=== PATIENT | female | born 1980 | race Caucasian/White ===

== ENCOUNTER 2020-02-03 11:06 | Outpatient (CLI) | payer OTHER, SELFPAY ==
--- NOTE | 2020-02-03 11:11 | MM_ITS ---
WS: [id number] SCREENING DIGITAL MAMMOGRAM WITH CAD HISTORY: SCREENING COMPARISON: None available. Bilateral CC and MLO views submitted. Computer aided detection analyzed. Breast composition: There are scattered areas of fibroglandular density. Well-circumscribed lobulated nodule measuring 13 x 8 mm, 2:00 middle depth LEFT breast. Additional nearly isodense nodule measuri ng 7 mm seen on the RIGHT MLO projection in the posterior superior breast adjacent to the pectoralis muscle. MM/[place] [id number] IMPRESSION: BI-RADS: 0-Incomplete: Need additional imaging evaluation FOLLOW UP: Need Additional Imaging RIGHT breast: Spot compression views (exaggerated lateral CC and MLO). True ML. Ultrasound to follow if abnormality persists. LEFT breast: Spot compression views (CC and MLO). True ML. Ultrasound to follow if abnormality persists.
== END 2020-02-03 11:07 | disposition home or self-care (01) ==
LOC: RADSHAW 11:10
PROVIDERS: Visit Provider Obstetrics & Gynecology
DX: Z12.31 Encounter for screening mammogram for malignant neoplasm of breast (principal); N63.21 Unspecified lump in the left breast, upper outer quadrant
CPT/HCPCS: 77067

== ENCOUNTER 2020-02-23 12:48 | Outpatient (CLI) | payer OTHER, SELFPAY ==
--- NOTE | 2020-02-23 13:30 | MM_ITS ---
WS: [id number] BILATERAL DIGITAL DIAGNOSTIC MAMMOGRAM MAMMOGRAPHY WITH CAD CLINICAL INFORMATION: N63.0 - Unspecified lump in unspecified breast HISTORY: COMPARISON: None. TECHNIQUE: Bilateral CC, MLO, and ML views. FINDINGS: Scattered fibroglandular densities bilaterally. Well-circumscribed lobulated nodule measuring 13 x 8 mm, 2:00 middle depth LEFT breast is unchanged. Additional small ovoid nodule measuring 7 mm seen on the RIGHT MLO projection in the posterior superi or breast is unchanged and may represent an incidental lymph node. Ultrasound is pending. ULTRASOUND BREAST BILATERAL TECHNIQUE: Ultrasound bilateral breast focused area of concern. CLINICAL INFORMATION: N63.0 - Unspecified lump in unspecified breast COMPARISON: None. FINDINGS: Ultrasound left breast at the 2:00 position. There is a 1.2 x 1.1 x 0.9 cm hypoechoic slightly lobula karen lesion. This is nonspecific but may represent a fibroadenoma. Recommend further evaluation with u ltrasound-guided biopsy. Right breast ultrasound performed at the 12:00 position. No abnormalities to correspond to the mammog raphic findings. No suspicious lesions in the right breast. MM/[place] [id number] IMPRESSION: BI-RADS: 4-Suspicious Finding-Biopsy Should Be Considered FOLLOW UP: US Guided Biopsy Recommended RECOMMEND ULTRASOUND-GUIDED BIOPSY OF LEFT BREAST LESION
--- NOTE | 2020-02-23 14:15 | US_ITS ---
WS: [id number] BILATERAL DIGITAL DIAGNOSTIC MAMMOGRAM MAMMOGRAPHY WITH CAD CLINICAL INFORMATION: N63.0 - Unspecified lump in unspecified breast HISTORY: COMPARISON: None. TECHNIQUE: Bilateral CC, MLO, and ML views. FINDINGS: Scattered fibroglandular densities bilaterally. Well-circumscribed lobulated nodule measuring 13 x 8 mm, 2:00 middle depth LEFT breast is unchanged. Additional small ovoid nodule measuring 7 mm seen on the RIGHT MLO projection in the posterior superi or breast is unchanged and may represent an incidental lymph node. Ultrasound is pending. ULTRASOUND BREAST BILATERAL TECHNIQUE: Ultrasound bilateral breast focused area of concern. CLINICAL INFORMATION: N63.0 - Unspecified lump in unspecified breast COMPARISON: None. FINDINGS: Ultrasound left breast at the 2:00 position. There is a 1.2 x 1.1 x 0.9 cm hypoechoic slightly lobula karen lesion. This is nonspecific but may represent a fibroadenoma. Recommend further evaluation with u ltrasound-guided biopsy. Right breast ultrasound performed at the 12:00 position. No abnormalities to correspond to the mammog raphic findings. No suspicious lesions in the right breast. US/US breast BI limited* [id number] IMPRESSION: BI-RADS: 4-Suspicious Finding-Biopsy Should Be Considered FOLLOW UP: US Guided Biopsy Recommended RECOMMEND ULTRASOUND-GUIDED BIOPSY OF LEFT BREAST LESION
== END 2020-02-23 12:49 | disposition home or self-care (01) ==
LOC: RADSHAW 12:49
PROVIDERS: Visit Provider Obstetrics & Gynecology
DX: N63.21 Unspecified lump in the left breast, upper outer quadrant (principal)
CPT/HCPCS: 76642; 77066

== ENCOUNTER 2020-03-02 11:44 | Outpatient (CLI) | payer OTHER, SELFPAY ==
--- NOTE | 2020-03-02 13:00 | US_ITS ---
WS: [id number] ULTRASOUND-GUIDED LEFT BREAST BIOPSY HISTORY: N63.20 - Unspecified lump in the left breast, unspecified quadrant COMPARISON: 02/23/2020 Procedure, risks and complications are explained to the patient. Medications are reviewed. Consent is obtained. The mass in the LEFT (2:00, 3 cm from the nipple) breast is localized with ultrasound. Skin is cleans ed with ChloraPrep and anesthetized with 1% buffered lidocaine. Small dermatome is made. Under steril e conditions mass is biopsied with a 14-gauge Achieve needle. Multiple core biopsies are performed. M aterial placed in formalin and sent to pathology for review. No complications encountered. Breast tissue marker (Bard ultrasound enhanced ribbon): Single. Patient left the radiology suite with no complications. Patient is instructed to return to [facility] or [facility] with any concerns. US/[place] [id number] IMPRESSION: 1. Uncomplicated core needle biopsy LEFT breast biopsy, 2:00. PATHOLOGY: Fibroadenoma. No malignancy. RECOMMENDATION: Although this is a benign diagnosis the margins of this mass is slightly lobulated and the mass is taller than wide. Surgical excision of this mass is recommended to evaluate the entire mass. I did discuss this with Mrs. Floyd that I would recommend surgical removal even if there was a benign diagnos is. Recommend surgical evaluation as imaging findings and pathology is not comp letely concordant.
== END 2020-03-02 11:45 | disposition home or self-care (01) ==
PROVIDERS: PCP Student in an Organized Health Care Education/Training Program; Visit Provider Obstetrics & Gynecology
DX: N63.20 Unspecified lump in the left breast, unspecified quadrant (principal); D24.2 Benign neoplasm of left breast
CPT/HCPCS: 19083; 88305

== ENCOUNTER → 2020-03-16 11:28 | Outpatient (BNVA) | payer OTHER, SELFPAY | PROVIDERS: PCP Student in an Organized Health Care Education/Training Program; Visit Provider Surgery | DX: Z01.812 Encounter for preprocedural laboratory examination (principal) | CPT/HCPCS: 87635 ==

== ENCOUNTER 2020-03-20 10:28 | Day surgery (SDC) | payer OTHER, SELFPAY ==
[2020-03-17 15:02] VITALS: BMI 34.2
[2020-03-20] VITALS (8 sets, daily range): BP systolic 79–126; BP diastolic 40–76; PULSE 77–88; RESP 14–19; TEMP 36.2–36.9; O2SAT 93–99
[2020-03-20] MEDS: sodium chloride 0.9% 1,000 ML 30 ML IV (10:43)
[2020-03-20 11:06] LABS: OR HCG Qualitative Urine Negative (Negative)
--- NOTE | 2020-03-20 11:21 | W.PM.OPSUD ---
Surgery/Procedure H&P Update DATE OF PROCEDURE: March 20, 2020 DATE H&P PERFORMED: 03/16/20 H&P UPDATE INFORMATION: I have reviewed H&P completed within last 30 days, I have examined patient prior to procedure and No changes to prior documentation PREOP DIAGNOSIS: Left breast mass PRIMARY INDICATION FOR PROCEDURE: The same PLANNED PROCEDURE: Operation Date: 03/20/20 12:15 Proposed Procedures p Excision of Left Breast Mass 52902 R92.8(Left) - Francois Lopez MD
--- NOTE | 2020-03-20 11:24 | P.ANESASSM_ITS ---
Pre-Anesthetic Assessment Pre-Anesthetic Assessment: Height/Weight: Height 1.73 m Weight 102.058 kg Temp Pulse Resp BP Pulse Ox 97.7 F 88 18 108/74 96 03/20/20 11:10 03/20/20 11:10 03/20/20 11:10 03/20/20 11:10 03/20/20 11:10 Preop Diagnosis: Left breast mass Proposed Procedure: Operation Date: 03/20/20 12:15 Proposed Procedures p Excision of Left Breast Mass 35113 R92.8(Left) - Francois Lopez MD Was Beta Raina taken within 24 hours: N/A Last intake: Intake Last Liquid Date 03/19/20 Last Liquid Time 21:00 Last Solid Date 03/19/20 Last Solid Time 21:00 Social: Social History: No alcohol and No tobacco Exam: Pre-Anes Outpt Exam: alert, oriented x 3, clear to auscultation bilaterally and regular rate & rhythm Airway: Submandibular: WNL Cervical ROM: WNL MP: 2 Dentition: Full CV/HEM: CV/HEM: HTN Metabolic: Metabolic: Morbid obesity Anesthetic Plan: ASA status: 2 Anesthesia: General Risk of > 500 ml blood loss (7ml/kg in children): No Meds/Allergies Current Medications: Current Medications Generic Name Dose Route Start Last Admin Trade Name Freq PRN Reason Stop Dose Admin Sodium Chloride 1,000 mls @ 30 ml s/hr 03/20/20 10:45 03/20/20 10:43 Sodium Chloride 0.9% IV 03/21/20 10:44 30 mls/hr .Q24H OLIVER Administration PFSH Anesthesia PFSH: Medical History Hypertension PCOS (polycystic ovarian syndrome) (~2005) Diagnosed in 2005. Treated with Metformin in the past Surgical History History of hysteroscopy (11/21/15) Dx: DUB. Performed by Dr. Grigsby at [facility] [place] [place] in [place], [place]. Findings: 1-2? uterine prolapse under anesthesia. S/P laparoscopic appendectomy (~09/2017) Performed in [place], [place] S/P LASIK surgery of both eyes (~2004) Family History Grandfather Cancer Maternal - Lung cancer Diabetes Paternal Mother Hypertension Grandmother Hypertension Maternal Family/Other Cancer Maternal aunt - Breast cancer Social History Smoking and tobacco status: never smoked Alcohol intake: current Alcohol intake frequency: holidays/special occasions only Female Reproductive History: Date of last menstrual period: 02/28/20 Data Anesthesia Other Labs: Laboratory Results - last 48 hr 03/20/20 11:05 Urine HCG, Qual Negative Cardiac Studies: No Data to Display
[2020-03-20] MEDS: lidocaine 2% INJ 20 mL INJECTION (12:14)
--- NOTE | 2020-03-20 12:36 | PM.OP ---
Operative Report Date of procedure: March 20, 2020 Pre-op Diagnosis: Left breast mass Post-op diagnosis: same Post-op Findings: Lipomatous/fibroadenomatous left breast mass 3 x 3 cm Procedure Done: Excision of left breast mass/lumpectomy Specimens removed/disposition: Left breast mass oriented short sutures superior and long sutures lateral Surgeon: Francois Lopez Shipping Checker: Surgical Leni Pastrana Circulating nurses Nora, Yadira PALMER and Fide Anesthesia: General (LMA site identification specialist Dary) Estimated blood loss (mL): 15 Condition: stable Disposition: same day Brief History: This is a pleasant 39 years old female patient presented with incidental finding of left breast lump, after further history taking physical examination and reviewing the chart and images with my personal interpretation and discussing further the images with Dr. Acosta.I did rehabilitation services counselor the patient for left breast mass excision. Informed consent per chart Procedure: After identifying the patient holding area,the left breast was marked before the procedure by myself in the presence of female checker bakery products GEORGES Claire, patient was then taken to the operative suite, was placed in supine position, intubated by anesthesia, LMA, prophylactic IV antibiotics were given per protocol, both arms were kept out, prep and drape of the left pectoralis region was done under the usual sterile technique. Timeout was done verifying the patient's name/date of /planned procedure and destination after the procedure, all were in agreement. After palpation of the breast lump I did add transverse incision on top of the mass and coinciding with the previous biopsy site, I was able to dissect using the Bovie cautery at good margin of normal breast tissue surrounding the mass, the mass appears to be deeper than would be expected and felt to be more likely Fibro lipoma-like/ fibroadenomatous changes, measures about 3 x 3 cm, the mass was then excised and appropriate orientation was done for the breast mass in the form of, short superior sutures, long left lateral sutures, and the specimen was taken out and passed to the circulating nurse for permanent pathology Thorough irrigation of the cavity was done and hemostasis, followed by deep dermal closure by 2-0 Vicryl, followed by 3-0 Vicryl then 4-0 Monocryl for skin closure Lidocaine 2% was injected at the site of the incision, Mastisol and Steri-Strips were applied followed by dry dressing in the form of fluffs and sports bra. Patient tolerated the procedure well, count of instruments,needle and sponges were completed at the end of the procedure.And then patient was transferred to the recovery area in stable condition. I Was present for the whole entire procedure
--- NOTE | 2020-03-20 15:20 | ANE.PACU2 ---
Inpatient post-anesthesia follow up: Airway intact: Yes Vital signs: Temperature 97.3 F Pulse Rate 85 Respiratory Rate 18 Blood Pressure 126/76 Pulse Oximetry 97 Oxygen Delivery Me thod Room Air Oxygen Flow Rate 6 Fraction of Inspir ed Oxygen Hydration adequate: Yes Nausea and vomiting: No Pain level: 1 Mental status: Baseline
== END 2020-03-20 14:10 | disposition home or self-care (01) ==
PROVIDERS: Anesthesiology; PCP Student in an Organized Health Care Education/Training Program; Visit Provider Surgery
PROC: (CPT 19120; principal; 2020-03-20 12:05)
DX: D24.2 Benign neoplasm of left breast (principal); I10 Essential (primary) hypertension; E66.01 Morbid (severe) obesity due to excess calories; Z68.34 Body mass index [BMI] 34.0-34.9, adult; E28.2 Polycystic ovarian syndrome
CPT/HCPCS: 19120; 12345; 84703; 88305; J0690; J2250; J2405; J2704; J3010; J7030

== ENCOUNTER → 2020-10-06 15:17 | Outpatient (BNVA) | payer OTHER, SELFPAY | PROVIDERS: PCP Student in an Organized Health Care Education/Training Program; Visit Provider Obstetrics & Gynecology | DX: D25.9 Leiomyoma of uterus, unspecified (principal) | CPT/HCPCS: 76830 ==

== ENCOUNTER → 2021-01-08 08:44 | Outpatient (BNVA) | payer OTHER, SELFPAY | PROVIDERS: PCP Student in an Organized Health Care Education/Training Program; Visit Provider Obstetrics & Gynecology | DX: D25.9 Leiomyoma of uterus, unspecified (principal) | CPT/HCPCS: 87624 ==

== ENCOUNTER 2021-02-09 09:31 | Outpatient (CLI) | payer OTHER, SELFPAY ==
--- NOTE | 2021-02-09 09:35 | MM_ITS ---
WS: [id number] Bilateral screening digital mammogram, 02/09/2021 Clinical Data: SCREENING Comparison: 02/23/2020, 02/03/2020. Findings: The breast parenchymal pattern shows fat replacement. No spiculated masses or clustered calcification s are seen. There are no secondary signs of carcinoma. The nodule which was in the upper outer aspect of the left breast is no longer present. MM/[place] [id number] Impression: 1. Negative bilateral mammogram unchanged. 2. Recommend annual screening mammograms. BIRADS: 1-Negative FOLLOW UP: 1 Year Follow-up The CAD receiving dock checker was used.
== END 2021-02-09 09:32 | disposition home or self-care (01) ==
LOC: RADSHAW 09:33
PROVIDERS: PCP Student in an Organized Health Care Education/Training Program; Visit Provider Obstetrics & Gynecology
DX: Z12.31 Encounter for screening mammogram for malignant neoplasm of breast (principal)
CPT/HCPCS: 77067

== ENCOUNTER → 2021-03-16 00:01 | Outpatient (BNVA) | payer OTHER, SELFPAY | PROVIDERS: PCP Student in an Organized Health Care Education/Training Program; Visit Provider Obstetrics & Gynecology | DX: Z20.822 Contact with and (suspected) exposure to COVID-19 (principal) | CPT/HCPCS: 87635 ==

== ENCOUNTER 2021-03-20 06:49 | Day surgery (SDC) | payer OTHER, SELFPAY ==
[2021-03-19 13:23] VITALS: BMI 33.2
[2021-03-20] VITALS (7 sets, daily range): BP systolic 110–134; BP diastolic 57–75; PULSE 70–78; RESP 14–22; TEMP 36.1–36.3; O2SAT 100
[2021-03-20 07:14] LABS: OR HCG Qualitative Urine Negative (Negative)
[2021-03-20] MEDS: sodium chloride 0.9% 1,000 ML 30 ML IV (07:49)
--- NOTE | 2021-03-20 07:58 | ANES.PREANE2 ---
Pre-Anesthetic Assessment Height/Weight: Height 1.75 m Weight 102.058 kg Preop Diagnosis: Left breast mass Operation Date: 02/20/21 10:30 Proposed Procedures p Hysteroscopy w/ Myosure 49998 [id number] 05077 D25.9 N92.0(Not Applicable) - Courtney Lemus MD s Dilation And Curettage (D&C)(Not Applicable) - Courtney Lemus MD Operation Date: 03/20/21 08:15 Proposed Procedures p Hysteroscopy w/ [id number]/86426/n92.0/d25.9(Not Applicable) - Courtney Lemus MD s Hysteroscopy w/ Ablation w/ Novasure/42592/d25.9/n92.0(Not Applicable) - Courtney Lemus MD Was Beta Raina taken within 24 hours: N/A Was Clonidine taken within 24 hours: N/A Last intake: Intake Last Liquid Date 03/19/21 Last Liquid Time 20:00 Last Solid Date 03/19/21 Last Solid Time 20:00 Social No alcohol and No tobacco Exam alert, oriented x 3, clear to auscultation bilaterally and regular rate & rhythm Airway Submandibular: within normal limits Cervical ROM: within normal limits Mallampati: Class II Dentition: full History/ROS No significant history except as noted Pulmonary None reported CV/HEM Hypertension PCOS Menorrhagia Uterine leiomyoma Hepatic None reported GI None reported Metabolic None reported Musc/skel None reported Neuropsych None reported Anesthetic Plan ASA status: 2 Anesthesia: Anesthesia Evaluation and General Other: We discussed both MAC and general anesthesia and their risk and benefits. We discussed spectrum of MAC anesthesia including possible recall of intraoperative stimuli including pain/discomfort and possible conversion to general. Patient understands goals of MAC and consents to both general and MAC pending further discussion with surgeon. Risk of > 500 ml blood loss (7ml/kg in children): No Medications/Allergies Home Medications Medication Instructions Recorded Confirmed Last Taken Type hydrochlorothiazide 12.5 mg tablet 12.5 mg PO DAILY 12/03/19 03/20/21 03/19/21 History lisinopril 5 mg tablet 5 mg PO DAILY 12/03/19 03/20/21 03/19/21 History ascorbate calcium (vitamin C) 500 500 mg PO DAILY 10/12/20 03/20/2103/19/22 History mg tablet cholecalciferol (vitamin D3) 10 10 mcg PO DAILY 10/12/20 03/20/21 03/19/21 History mcg (400 unit) capsule zinc 50 mg tablet 50 mg PO DAILY 10/12/20 03/20/21 03/18/21 History norethindrone 1 mg-ethinyl 1 tab PO DAILY #28 tab 01/09/21 03/20/21 03/19/21 Rx estradiol 35 mcg tablet (Nortrel) Allergies Allergy/AdvReac Type Severity Reaction Status Date / Time dextromethorphan Allergy Rash Verified 03/16/21 08:07 [From NyQuil] doxylamine [From NyQuil] Allergy Rash Verified 03/16/21 08:07 pseudoephedrine [From NyQuil] Allergy Rash Verified 03/16/21 08:07 Current Medications Generic Name Dose Route Start Last Admin Trade Name Freq PRN Reason Stop Dose Admin Sodium Chloride 1,000 mls @ 30 mls/hr 03/20/21 07:00 03/20/21 07:49 Sodium Chloride 0.9% IV 03/21/21 06:59 30 mls/hr .Q24H OLIVER Administration PFSH Anesthesia Medical History Hypertension PCOS (polycystic ovarian syndrome) (~2005) Diagnosed in 2005. Treated with Metformin in the past Postop check Surgical History History of breast lump removal 02/2020--left breast--benign History of hysteroscopy (11/21/15) Dx: DUB. Performed by Dr. Grigsby at [facility] [place] in [place], [place]. Findings: 1-2? uterine prolapse under anesthesia. S/P laparoscopic appendectomy (~09/2017) Performed in [place], [place] S/P LASIK surgery of both eyes (~2004) Family History Grandfather Cancer Maternal - Lung cancer Diabetes Paternal Mother Hypertension Grandmother Hypertension Maternal Family/Other Cancer Maternal aunt - Breast cancer Father Diabetes Hypertension Denies family history of CAD (coronary artery disease) Clotting disorder Hyperlipidemia Chronic kidney disease (CKD) Bleeding disorder Thyroid disease Stroke Social History Smoking and tobacco status: never smoked Alcohol intake: current Alcohol intake frequency: holidays/special occasions only Female Reproductive History Date of last menstrual period: 02/28/20 Data Anesthesia Cardiac Studies: No Data to Display
--- NOTE | 2021-03-20 08:37 | W.PM.OPSUD ---
Surgery/Procedure H&P Update DATE OF PROCEDURE: March 20, 2021 DATE H&P PERFORMED: 03/16/21 H&P UPDATE INFORMATION: I have reviewed H&P completed within last 30 days, I have examined patient prior to procedure and No changes to prior documentation PREOP DIAGNOSIS: menorrhagia, uterine leiomyoma PRIMARY INDICATION FOR PROCEDURE: abnormal uterine bleeding PLANNED PROCEDURE: Operation Date: 02/20/21 10:30 Proposed Procedures p Hysteroscopy w/ Myosure 60181 [id number] 89638 D25.9 N92.0(Not Applicable) - Courtney Lemus MD s Dilation And Curettage (D&C)(Not Applicable) - Courtney Lemus MD Operation Date: 03/20/21 08:15 Proposed Procedures p Hysteroscopy w/ [id number]/31838/n92.0/d25.9(Not Applicable) - Courtney Lemus MD s Hysteroscopy w/ Ablation w/ Novasure/21898/d25.9/n92.0(Not Applicable) - Courtney Lemus MD
[2021-03-20] MEDS: miSOPROStol 200 mcg Tablet 600 MCG VAGINAL (09:14)
[2021-03-20 09:32] LABS: Basophils % 0.3 %; Eosinophils # 0.1 10^3/uL (0.0-0.8); Hematocrit 39.5 % (37.0-47.0); Hemoglobin 13.3 g/dL (11.5-15.3); Lymphocytes % 19.2 %; Mean Corpuscular HGB Conc 33.7 g/dL (30.0-36.0); Mean Corpuscular Volume 89.2 fl (81-99); Mean Platelet Volume 11.3 fL (7.4-10.4); Monocytes # 0.6 10^3/uL (0.2-0.9); Nucleated Red Blood Cells % 0 %; Platelet Count 353 10^3/cmm (130-400); Red Blood Count 4.43 10^6/uL (4.1-5.3); Red Cell Distribution Width 13.3 % (12.1-15.1); White Blood Count 10.1 10^3/uL (4.0-10.0)
--- NOTE | 2021-03-20 09:48 | P.OP_ITS ---
Operative Report Date of procedure: March 20, 2021 Pre-op diagnosis: Preop Diagnosis uterine leiomyoma, menorrhagia Post-op diagnosis: same Post-op findings: 10 week sized uterus with multiple fibroids Procedure done: hysteroscopy, dilation and curettage with myosure, endometrial ablation with novasure Specimens removed/disposition: endometrial curettings Pathology: endometrial curettings to pathology Surgeon: chapin Estimated blood loss: 5 ml IV fluids: 500 ml Complications: none Findings: 10 week sized uterus. multiple fibroids. 2000 ml hysteroscopy deficit Brief History: The patient presented for menorrhagia. She had been placed on OCP, which improved her bleeding and made it regular, however, it was still quite heavy. She had an ultrasound which showed uterine leiomyoma Procedure: The patient was taken to the operating room where monitored anesthesia was administered and to be adequate. She was prepped and draped in the normal sterile fashion in the dorsal lithotomy position in Ced stirps. A weighted speculum was placed into the vagina and the anterior lip of the cervix grasped with a single-tooth tenaculum. The uterus was sounded to 10 cm. The uterine length was 6 cm. The cervix was dilated to 16 Spanish. The hysteroscope was advanced into the endometrial cavity. There were several fibroids visualized. The MyoSure device was activated and the tissue was removed. Pictures were taken pre and post procedure. Attention was then turned to the NovaSure portion of the procedure. The NovaSure device was advanced into the endometrial cavity. The endometrial length was 6 cm and the endometrial width was 3.6 cm. The NovaSure device was activated and burn time was 37 seconds. All instruments were removed. The patient tolerated the procedure well. Sponge lap and needle counts were correct x3. She was taken to the recovery room in stable condition.
--- NOTE | 2021-03-20 09:56 | P.DS_ITS ---
Discharge Providers Date of Admission: 03/20/20 Date of Discharge: March 20, 2021 Attending Provider at Admission: chapin Attending Provider at Discharge: Courtney Lemus MD Primary Care Provider: Bill Meyer Diagnoses at Discharge Discharge Diagnosis (1) Menorrhagia: Status: Acute (2) Uterine leiomyoma: Status: Acute (3) Postoperative state: Status: Acute Reason for Visit Reason for Visit: uterine fibroids, menorrhagia Hospital Course Hospital Course The patient was admitted for surgery. she did well postoperatively and was ready for discharge post surgery. Discharge Data Studies Completed and Pending: Pending at discharge Category Date Time Status Pathology: Surgic al [PTH] Routine Pth 03/20/21 09:54 Ordered Laboratory Results WBC 10.1 10^3/uL (4.0 -10.0) H 03/20/21 07:40 RBC 4.43 10^6/uL (4.1 -5.3) 03/20/21 07:40 Hgb 13.3 g/dL (11.5-1 5.3) 03/20/21 07:40 Hct 39.5 % (37.0-47.0 ) 03/20/21 07:40 MCV 89.2 fl (81-99) 03/20/21 07:40 MCH 30.0 pg (28.0-34. 0) 03/20/21 07:40 MCHC 33.7 g/dL (30.0-3 6.0) 03/20/21 07:40 RDW 13.3 % (12.1-15.1 ) 03/20/21 07:40 Plt Count 353 10^3/cmm (130 -400) 03/20/21 07:40 MPV 11.3 fL (7.4-10.4 ) H 03/20/21 07:40 Neut % (Auto) 73.0 % 03/20/21 07:40 Lymph % (Auto) 19.2 % 03/20/21 07:40 [place] % (Auto) 6.0 % 03/20/21 07:40 Eos % (Auto) 1.0 % 03/20/21 07:40 Baso % (Auto) 0.3 % 03/20/21 07:40 Neut # (Auto) 7.40 10^3/uL (1.8 -7.7) 03/20/21 07:40 Lymph # (Auto) 2.0 10^3/uL (0.8- 4.8) 03/20/21 07:40 [place] # (Auto) 0.6 10^3/uL (0.2- 0.9) 03/20/21 07:40 Eos # (Auto) 0.1 10^3/uL (0.0- 0.8) 03/20/21 07:40 Baso # (Auto) 0.0 10^3/uL (0.0- 0.1) 03/20/21 07:40 Nucleated RBC % (a uto) 0 % 03/20/21 07:40 Nucleated RBCs # 0.0 /100WBC 03/20/21 07:40 Urine HCG, Qual Negative (Negati ve) 03/20/21 07:12 Vitals: Last Vital Signs Temp 97.0 F L 03/20/21 09:49 Pulse 78 03/20/21 09:55 Resp 15 03/20/21 09:55 BP 117/75 03/20/21 09:55 Pulse Ox 100 03/20/21 09:55 Discharge Plan Discharge Patient Disposition: Home Condition: Stable Prescriptions: Continued lisinopril 5 mg tablet 5 mg PO DAILY 0RF hydrochlorothiazide 12.5 mg tablet 12.5 mg PO DAILY 0RF ascorbate calcium (vitamin C) 500 mg tablet 500 mg PO DAILY 0RF cholecalciferol (vitamin D3) 10 mcg (400 unit) capsule 10 mcg PO DAILY 0RF zinc 50 mg tablet 50 mg PO DAILY 0RF Nortrel 1/35 (28) 1-35 mg-mcg tablet 1 tab PO DAILY Qty: 28 12RF Discharge Orders: Discharge Order (Routine); Ordered 03/20/21 Ordered By: Courtney Lemus Discharge Attestations Time Spent in Discharge Care*: less than 30 min Quality Metrics Clinical Quality Measures [ No reported AMI, CVA or VTE this stay] Coding Level of Care Code Acute Chg FW DC note Diagnoses Menorrhagia N92.0 Uterine leiomyoma D25.9 Postoperative state Z98.890
[2021-03-20] MEDS: HYDROmorphone 1 mg/mL INJ 1 mL 0.5 MG IVP (10:30)
--- NOTE | 2021-03-20 13:02 | ANE.PACU2 ---
Inpatient post-anesthesia follow up: Airway intact: Yes Vital signs: Temperature 97.1 F Pulse Rate 73 Respiratory Rate 15 Blood Pressure 113/57 Pulse Oximetry 100 Oxygen Delivery Me thod Room Air Oxygen Flow Rate Fraction of Inspir ed Oxygen Hydration adequate: Yes Nausea and vomiting: No Pain level: 4 Mental status: Baseline
== END 2021-03-20 11:00 | disposition home or self-care (01) ==
PROVIDERS: Anesthesiology; PCP Student in an Organized Health Care Education/Training Program; Visit Provider Obstetrics & Gynecology
PROC: 0UDB8ZZ Extraction of Endometrium, Via Natural or Artificial Opening Endoscopic (ICD-10-PCS; CPT 58558; principal; 2021-03-20 08:15)
PROC: 0U598ZZ Destruction of Uterus, Via Natural or Artificial Opening Endoscopic (ICD-10-PCS; CPT 58563; 2021-03-20 08:15)
DX: D25.9 Leiomyoma of uterus, unspecified (principal); N92.0 Excessive and frequent menstruation with regular cycle; I10 Essential (primary) hypertension; E28.2 Polycystic ovarian syndrome; Z82.49 Family history of ischemic heart disease and other diseases of the circulatory system; Z83.3 Family history of diabetes mellitus
CPT/HCPCS: 58558; 36415; 81025; 84703; 85025; 88305; 96365; J0690; J1100; J1170; J1200; J2405; J2704; J3010; J7030

== ENCOUNTER 2022-02-19 09:06 | Outpatient (CLI) | payer OTHER, SELFPAY ==
--- NOTE | 2022-02-19 09:42 | MM_ITS ---
WS: [id number] BILATERAL SCREENING DIGITAL TOMOSYNTHESIS MAMMOGRAM WITH CAD HISTORY: SCREENING COMPARISON: 02/09/2021 and 02/23/2020. Bilateral CC and MLO views with tomosynthesis and synthetic mammography submitted. Computer aided det ection analyzed. Breast composition: There are scattered areas of fibroglandular density. No suspicious masses, microc alcifications or architectural distortion. MM/[id number] IMPRESSION: BI-RADS: 1-Negative FOLLOW UP: 1 Year Follow-up
== END 2022-02-19 09:07 | disposition home or self-care (01) ==
LOC: RAD 09:07
PROVIDERS: PCP Registered Nurse; Visit Provider Obstetrics & Gynecology
DX: Z12.31 Encounter for screening mammogram for malignant neoplasm of breast (principal)
CPT/HCPCS: 77063; 77067

== ENCOUNTER 2022-07-09 10:08 | Observation (INO) | payer OTHER, SELFPAY ==
[2022-07-05 14:31] VITALS: BMI 32.9
[2022-07-05 14:55] LABS: Basophils % 0.2 %; Eosinophils # 0.1 10^3/uL (0.0-0.8); Eosinophils % 0.7 %; Hematocrit 41.8 % (37.0-47.0); Hemoglobin 13.7 g/dL (11.5-15.3); Lymphocytes # 2.3 10^3/uL (0.8-4.8); Lymphocytes % 18.4 %; Mean Corpuscular HGB Conc 32.8 g/dL (30.0-36.0); Mean Corpuscular Hemoglobin 29.7 pg (28.0-34.0); Mean Corpuscular Volume 90.5 fl (81-99); Mean Platelet Volume 11.1 fL (7.4-10.4); Monocytes # 0.7 10^3/uL (0.2-0.9); Monocytes % 5.7 %; Neutrophils # 9.21 10^3/uL (1.8-7.7); Neutrophils % 74.7 %; Nucleated Red Blood Cells % 0 %; Platelet Count 332 10^3/cmm (130-400); Red Blood Count 4.62 10^6/uL (4.1-5.3); White Blood Count 12.4 10^3/uL (4.0-10.0)
--- NOTE | 2022-07-05 14:58 | P.ANESASSM_ITS ---
Pre-Anesthetic Assessment Height/Weight: Height 1.75 m Weight 101.151 kg Preop Diagnosis: uterine fibroids, menorrhagia, adenomyosis Operation Date: 07/09/22 07:00 Proposed Procedures p Laparoscopic assisted vaginal hysterectomy, bilateral salpingectomy 73034 N9 3.9,N81.4(Not Applicable) - Courtney Lemus MD s Salpingectomy(Bilateral) - Courtney Lemus MD Familial anesthetic complications: none Was Beta Raina taken within 24 hours: N/A Was Clonidine taken within 24 hours: N/A Social No alcohol and No tobacco Exam alert, oriented x 3, clear to auscultation bilaterally and regular rate & rhythm Airway Submandibular: within normal limits Cervical ROM: within normal limits Mallampati: Class II Dentition: full CV/HEM Hypertension Metabolic Morbid Obesity Anesthetic Plan ASA status: 2 Anesthesia: General Medications/Allergies Home Medications Medication Instructions Recorded Confirmed Last Taken Type hydrochlorothiazide 12.5 mg tablet 12.5 mg PO DAILY 12/03/19 07/05/22 07/05/22 History lisinopril 5 mg tablet 5 mg PO DAILY 12/03/19 07/05/22 07/05/22 History norethindrone 1 mg-ethinyl 1 tab PO DAILY #28 tabs 01/21/22 07/05/22 07/05/22 Rx estradiol 35 mcg tablet (Nortrel) Allergies Allergy/AdvReac Type Severity Reaction Status Date / Time dextromethorphan Allergy Rash Verified 07/05/22 14:28 [From NyQuil] doxylamine [From NyQuil] Allergy Rash Verified 07/05/22 14:28 pseudoephedrine [From NyQuil] Allergy Rash Verified 07/05/22 14:28 [facility] Anesthesia Medical History Abnormal mammogram of left breast Contraception management Hypertension PCOS (polycystic ovarian syndrome) (~2005) Diagnosed in 2005. Treated with Metformin in the past Postop check Uterine leiomyoma Surgical History History of breast lump removal 02/2020--left breast--benign History of hysteroscopy (11/21/15) Dx: DUB. Performed by Dr. Grigsby at [facility] in [place], [place]. Findings: 1-2? uterine prolapse under anesthesia. S/P laparoscopic appendectomy (~09/2017) Performed in [place], [place] S/P LASIK surgery of both eyes (~2004) Family History Grandfather Diabetes Paternal Mother Hypertension Grandmother Hypertension Maternal Father Diabetes Hypertension Denies family history of Colon cancer Ovarian cancer Heart disease Hypercholesteremia Breast cancer Uterine cancer Thyroid disease Stroke Social History Substance/Drug Use: never Female Reproductive History Date of last menstrual period: 06/28/22 Data Anesthesia 07/05/22 14:40 07/05/22 14:40 Cardiac Studies: No Data to Display
[2022-07-05 15:12] LABS: Anion Gap 17.6 (5-19); Blood Urea Nitrogen 12 mg/dL (6-20); Calcium 8.7 mg/dL (8.5-10.5); Carbon Dioxide 21 mmol/L (22-29); Chloride 100 mmol/L (98-107); Creatinine Clr Calc Pharmacy 154.6071; Glomerular Filtration Rate 109.6 mL/min (90-130); Glucose 121 mg/dL (65-115); Osmolality Calculated 281 mOsm/kg (285-295); Potassium 3.6 mmol/L (3.5-5.1); Sodium 135 mmol/L (136-145)
[2022-07-09] VITALS (17 sets, daily range): BP systolic 98–136; BP diastolic 46–91; PULSE 62–92; RESP 14–18; TEMP 36.1–37; O2SAT 92–98
[2022-07-09] MEDS: phenazopyridine 100 mg Tablet 200 MG PO ×2 (06:32→15:30)
[2022-07-09] MEDS: acetaminophen 1,000 MG/100 ML PIGGYBACK 400 MG IV (06:33)
[2022-07-09] MEDS: gabapentin 300 mg Capsule PO (06:33)
[2022-07-09] MEDS: CELEcoxib 200 mg Capsule 400 MG PO (06:33)
[2022-07-09] MEDS: scopolamine 1.5 Patch 1 PATCH TRANSDERMA (06:33)
[2022-07-09] MEDS: sodium chloride 0.9% 1,000 ML 30 ML IV (06:38)
--- NOTE | 2022-07-09 06:49 | P.ANESUD_ITS ---
Pre-Anesthetic Update Pre-Anesthetic Assessment: Date of Surgery/Procedure: 07/09/22 Preop Jacquelyn gnosis: uterine fibroids, menorrhagia, adenomyosis Proposed Procedure: Operation Date: 07/09/22 07:00 Proposed Procedures p Laparoscopic assisted vaginal hysterectomy, bilateral salpingectomy 96823 N93.9,N81.4(Not Applicable) - Courtney Lemus MD s Salpingectomy(Bilateral) - Courtney Lemus MD Any changes to Pre-Anesthetic Assessment?: No Last Intake: Intake Last Liquid Date 07/08/22 Last Liquid Time 19:30 Last Solid Date 07/08/22 Last Solid Time 19:30 Vitals: Temperature 97.5 F L 07/09/22 06:00 Temperature Source Temporal Artery S can 07/09/22 06:00 Pulse Rate 88 07/09/22 06:00 Respiratory Rate 16 07/09/22 06:00 Blood Pressure 136/91 07/09/22 06:00 Blood Pressure Eryn n 106 07/09/22 06:00 Pulse Oximetry 98 07/09/22 06:00 Oxygen Delivery Me thod Room Air 07/09/22 06:20 Exam: Pre-Anes Outpt Exam: alert, oriented x 3, clear to auscultation bilaterally and regular rate & rhythm Cardiac Studies: No Data to Display
--- NOTE | 2022-07-09 07:07 | W.PM.OPSUD ---
Surgery/Procedure H&P Update DATE OF PROCEDURE: July 09, 2022 DATE H&P PERFORMED: 07/05/22 H&P UPDATE INFORMATION: I have reviewed H&P completed within last 30 days, I have examined patient prior to procedure and No changes to prior documentation PREOP DIAGNOSIS: uterine fibroids, menorrhagia, adenomyosis PLANNED PROCEDURE: Operation Date: 07/09/22 07:00 Proposed Procedures p Laparoscopic assisted vaginal hysterectomy, bilateral salpingectomy 56490 N93.9,N81.4(Not Applicable) - Courtney Lemus MD s Salpingectomy(Bilateral) - Courtney Lemus MD Related Problem List Diagnoses (1) Adenomyosis: (2) Menorrhagia: (3) Uterine leiomyoma:
[2022-07-09 07:09] LABS: OR HCG Qualitative Urine Negative (Negative)
[2022-07-09] MEDS: ceFAZolin 2,000 MG in sodium chloride 0.9% (plus) 50 ML 100 MG IV ×2 (07:10→15:29)
[2022-07-09] MEDS: vasopressin 20 unit/mL INJ INJECTION (07:53)
--- NOTE | 2022-07-09 09:28 | P.OP_ITS ---
Operative Report Date of procedure: July 09, 2022 Pre-op diagnosis: Preop Diagnosis uterine fibroids, menorrhagia, adenomyosis Post-op diagnosis: same Post-op findings: 10 week sized uterus with fibroids. Normal appearing tubes and ovaries Procedure done: LAVH, bilateral salpingectomy Specimens removed/disposition: uterus and fallopian tubes to pathology Surgeon: Courtney Lemus Anesthesia: General Estimated blood loss (mL): 200 IV fluids (mL): 1,000 Urine output (mL): 300 Complications: none Condition: stable Disposition: PACU Procedure: The patient was taken to the operating room where general anesthesia was administered and found to be adequate. She was prepped and draped in the normal sterile fashion in the dorsal lithotomy position in [facility]. A Stack catheter was placed. A urine culture was obtained. A weighted speculum was placed into the vagina and the cervix was grasped with a single tooth tenaculum. The Patient has had a previous endometrial ablation. A uterine manipulator was unable to be placed. The weighted speculum was removed. The gloves were changed and attention was turned to the abdomen. A 5 mm supraumbilical incision was made. Using a 5 mm port with the camera, the port was placed into the abdomen. The abdomen was insufflated. Two low, lateral 5 mm ports were placed on the left and right under direct visualization from the camera. The right tube was grasped and elevated. Using the laparoscopic cautery, the mesosalpinx was divided between the ovary and tube. The tube was removed. This was performed the same way on the left. The uteroovarian ligaments as well as the round ligaments were ligated. Attention was then turned to the vaginal portion of the procedure. The weighted speculum was placed into the vagina. The single tooth tenaculum was removed and replaced with the zain's tenaculum. 10 mL of dilute Pitressin was injected at the vesicovaginal junction. A circumferential incision was made at the vesicovaginal junction and the vaginal mucosa reflected cephalad. The posterior peritoneum was entered sharply with the Metzenbaum scissors and the long weighted speculum replaced. Using the [place] clamps the uterosacral ligaments were clamped cut and suture-ligated. The anterior peritoneum was entered sharply with the metzenbaum scissors. Then sequentially the uterine arteries and cardinal ligaments were clamped cut and suture-ligated. A single- tooth tenaculum was used to deliver the uterus. The remaining segement of the utero-ovarian ligaments were clamped cut and suture-ligated bilaterally and the specimen was removed. There was good hemostasis with only mild bleeding from the cuff. The peritoneum was closed with a pursestring using 2-0 Vicryl. The vaginal cuff was closed with 0 Vicryl in a running locked pattern incorporating the uterosacral ligaments into the lateral aspects of the vaginal cuff. The Stack catheter was removed and the cystoscope advanced into the bladder. The patient was given pyridium and bilateral spill was noted. There were no injuries or deficits noted in the bladder. The cystoscope was removed and the Stack was replaced. Vaginal packing was placed for good hemostasis. The gloves and gowns were changed and attention was turned to the abdomen. The ports were closed with 2-0 monocryl with skin glue. The patient tolerated the procedure well. Sponge lap and needle counts were correct x3. She was taken to the recovery room in stable condition.
--- NOTE | 2022-07-09 09:43 | PC.NURSE ---
Pt arrived to PACU, awake, denies any pain or nausea at this time. Dermabond to abdomen C/D/I, vag packing and peripad in place-no drainage noted. Stack catheter patent and draining. SCD's in place and running.
[2022-07-09] MEDS: fentaNYL 50 mcg/mL INJ 2mL IVP (09:55)
[2022-07-09] MEDS: ketorolac 30 mg/mL INJ IVP (10:02)
[2022-07-09] MEDS: ketorolac 30 mg/mL INJ (10:47)
[2022-07-09] MEDS: HYDROcodone-acetaminophen 5-325 mg Tablet PO ×2 (12:40→18:56)
[2022-07-09] MEDS: ondansetron 2 mg/ML SDV 2 mL 4 MG IVP (12:46)
--- NOTE | 2022-07-09 14:52 | ANE.PACU2 ---
Inpatient post-anesthesia follow up: Airway intact: Yes Vital signs: Temperature 98.1 F Pulse Rate 62 Respiratory Rate 16 Blood Pressure 102/51 Pulse Oximetry 92 Oxygen Delivery Me thod Room Air Oxygen Flow Rate Fraction of Inspir ed Oxygen Hydration adequate: Yes Nausea and vomiting: No Pain level: 1 Mental status: Baseline
[2022-07-09] MEDS: docusate sodium 100 mg Capsule PO (17:42)
[2022-07-09] MEDS: dextrose 5%-lactated ringers 1,000 ML 125 ML IV (17:42)
[2022-07-10] MEDS: ketorolac 30 mg/mL INJ IVP (00:22)
[2022-07-10] MEDS: ceFAZolin 2,000 MG in sodium chloride 0.9% (plus) 50 ML 100 MG IV (00:22)
[2022-07-10] MEDS: dextrose 5%-lactated ringers 1,000 ML 125 ML IV (00:22)
[2022-07-10] MEDS: phenazopyridine 100 mg Tablet 200 MG PO ×2 (00:23→08:15)
[2022-07-10] MEDS: HYDROcodone-acetaminophen 5-325 mg Tablet PO (03:52)
[2022-07-10 04:06] VITALS: BP 117/78; PULSE 82; RESP 16; TEMP 36.9; O2SAT 96
--- NOTE | 2022-07-10 05:33 | PC.NURSE ---
Vaginal packing removed at this time.
[2022-07-10 05:35] LABS: Hemoglobin 10.8 g/dL (11.5-15.3); Mean Corpuscular Hemoglobin 29.7 pg (28.0-34.0); Mean Corpuscular Volume 98.9 fl (81-99); Platelet Count 271 10^3/cmm (130-400); Red Blood Count 3.64 10^6/uL (4.1-5.3); White Blood Count 14.6 10^3/uL (4.0-10.0)
[2022-07-10] MEDS: lisinopril 5 mg Tablet PO (08:08)
[2022-07-10] MEDS: ibuprofen 800 mg tablet PO (08:08)
[2022-07-10] MEDS: docusate sodium 100 mg Capsule PO (08:08)
[2022-07-10] MEDS: hydroCHLOROthiazide 25 mg Tablet 12.5 MG PO (08:08)
[2022-07-10 09:01] VITALS: BP 129/76; PULSE 72; RESP 16; O2SAT 98
--- NOTE | 2022-07-10 10:51 | PM.DCS ---
Discharge Providers Date of Admission: 07/09/22 10:08 Date of Discharge: July 10, 2022 Attending Provider at Admission: Courtney Lemus MD Attending Provider at Discharge: Courtney Lemus MD Primary Care Provider: ROBERT Ortiz Diagnoses at Discharge Discharge Diagnosis (1) Adenomyosis: Status: Acute (2) Menorrhagia: Status: Acute (3) Uterine leiomyoma: Status: Inactive Reason for Visit Reason for Visit: 04584 N93.3 Hospital Course Hospital Course The patient was admitted for surgery. She did well postoperatively and was ready for discharge on day #1 Physical Exam Narrative: The patient did well overnight. Pain is well controlled. She is tolerating a regular diet and ambulating without difficulty. Her packing and catheter have been removed. Const: COMMON NORMALS: no acute distress, patient oriented x3, no limitations, healthy appearing, alert and well nourished GENERAL APPEARANCE: cooperative, comfortable, well kempt and well developed ORIENTATION/CONSCIOUSNESS: Yes awake, Yes oriented to person, Yes oriented to place and Yes oriented to time Resp: COMMON NORMALS: normal respiratory effort and clear to auscultation bilaterally AUSCULTATION: clear to auscultation bilaterally GI: COMMON NORMALS: Soft to palpation and non-tender PALPATION: Yes Soft to palpation Extremity: COMMON NORMALS: no calf tenderness Neuro: COMMON NORMALS: patient oriented x3 SENSORIUM/ORIENTATION: Yes alert, Yes oriented to person, Yes oriented to place and Yes oriented to time Psych: COMMON NORMALS: mental status grossly normal, Normal thought process present, cooperative, normal affect and speech normal APPEARANCE: Yes well kempt SPEECH: Yes normal speech THOUGHT PROCESS: Normal thought process present Urinary Catheter Management: Stack: Cath Placed During This Visit: yes, but has since been removed by the nurse Reason for Continuing Indwelling Catheter: Decision to DC Catheter Urinary Catheter Date of Insertion: 07/09/22 Urinary Catheter Time of Insertion: 07:54 Date Urinary Catheter Removed: 07/10/22 Time Urinary Catheter Discontinued: 05:32 Discharge Data Studies Completed and Pending Pending at discharge Category Date Time Status Urine Culture Routine Lab 07/09/22 07:49 Results Pathology: Surgical [PTH] Routine Pth 07/09/22 09:07 Received Laboratory Results WBC 14.6 10^3/uL (4.0-10.0) H 07/10/22 05:30 RBC 3.64 10^6/uL (4.1-5.3) L 07/10/22 05:30 Hgb 10.8 g/dL (11.5-15.3) L 07/10/22 05:30 Hct 36.0 % (37.0-47.0) L 07/10/22 05:30 MCV 98.9 fl (81-99) 07/10/22 05:30 MCH 29.7 pg (28.0-34.0) 07/10/22 05:30 MCHC 30.0 g/dL (30.0-36.0) 07/10/22 05:30 RDW 13.0 % (12.1-15.1) 07/10/22 05:30 Plt Count 271 10^3/cmm (130-400) 07/10/22 05:30 MPV 11.0 fL (7.4-10.4) H 07/10/22 05:30 Neut % (Auto) 74.7 % 07/05/22 14:40 Lymph % (Auto) 18.4 % 07/05/22 14:40 [place] % (Auto) 5.7 % 07/05/22 14:40 Eos % (Auto) 0.7 % 07/05/22 14:40 Baso % (Auto) 0.2 % 07/05/22 14:40 Neut # (Auto) 9.21 10^3/uL (1.8-7.7) H 07/05/22 14:40 Lymph # (Auto) 2.3 10^3/uL (0.8-4.8) 07/05/22 14:40 [place] # (Auto) 0.7 10^3/uL (0.2-0.9) 07/05/22 14:40 Eos # (Auto) 0.1 10^3/uL (0.0-0.8) 07/05/22 14:40 Baso # (Auto) 0.0 10^3/uL (0.0-0.1) 07/05/22 14:40 Nucleated RBC % (auto) 0 % 07/05/22 14:40 Nucleated RBCs # 0.0 /100WBC 07/05/22 14:40 Sodium 135 mmol/L (136-145) L 07/05/22 14:40 Potassium 3.6 mmol/L (3.5-5.1) 07/05/22 14:40 Chloride 100 mmol/L (98-107) 07/05/22 14:40 Carbon Dioxide 21 mmol/L (22-29) L 07/05/22 14:40 Anion Gap 17.6 (5-19) 07/05/22 14:40 BUN 12 mg/dL (6-20) 07/05/22 14:40 Creatinine 0.6 mg/dL (0.5-0.9) 07/05/22 14:40 GFR Calculation 109.6 mL/min (90-130) 07/05/22 14:40 Glucose 121 mg/dL (65-115) H 07/05/22 14:40 Calculated Osmolality 281 mOsm/kg (285-295) L 07/05/22 14:40 Calcium 8.7 mg/dL (8.5-10.5) 07/05/22 14:40 Urine HCG, Qual Negative (Negative) 07/09/22 07:07 Blood Type O Positive 07/09/22 06:55 Rho(D) Type Positive 07/09/22 06:55 Antibody Screen Negative 07/09/22 06:55 Vitals Last Vital Signs Temp 98.5 F 07/10/22 04:06 Pulse 72 07/10/22 09:01 Resp 16 07/10/22 09:01 BP 129/76 07/10/22 09:01 Pulse Ox 98 07/10/22 09:01 O2 Del Method Room Air 07/10/22 09:01 Discharge Plan Discharge Patient Disposition: Home Condition: Stable Prescriptions: New docusate sodium 100 mg Capsule 100 mg PO BID Qty: 60 0RF ibuprofen 800 mg Tablet 800 mg PO Q8H 14 Days Qty: 42 0RF hydrocodone-acetaminophen 5-325 mg Tablet 1 tab PO Q4H PRN (Reason: Moderate To Severe Pain) Qty: 30 0RF Continued lisinopril 5 mg tablet 5 mg PO DAILY hydrochlorothiazide 12.5 mg tablet 12.5 mg PO DAILY Discontinued Nortrel 1 () 1-35 mg-mcg tablet 1 tab PO DAILY Qty: 28 12RF Discharge Orders: Discharge Order (Routine); Ordered 07/10/22 Ordered By: Courtney Lemus Referrals: Courtney Lemus MD [Physician] - 07/15/22 10:30 am (1 week post-op: 07/15/22 @10:30 6 week post-op: 08/19/22 @8:45) Patient Instructions: Salpingectomy (DC), Laparoscopic Hysterectomy (DC), Cystoscopy (DC), OB Discharge Report, OB Food/Drug Interaction Guide, Opioid Safety Discharge Attestations Time Spent in Discharge Care*: less than 30 min Quality Metrics Clinical Quality Measures [ No reported AMI, CVA or VTE this stay] Coding Level of Care Code Acute Code for Chg Fwd Diagnoses Adenomyosis N80.03 Menorrhagia N92.0 Uterine leiomyoma D25.9
[2022-07-10 11:18] VITALS: BP 114/60; PULSE 74; RESP 14; O2SAT 98
== END 2022-07-10 11:34 | disposition home or self-care (01) ==
LOC: OBGYN 10:10
PROVIDERS: Admitting Provider Obstetrics & Gynecology; PCP Registered Nurse; Visit Provider Obstetrics & Gynecology
PROC: 0UT9FZZ Resection of Uterus, Via Natural or Artificial Opening With Percutaneous Endoscopic Assistance (ICD-10-PCS; CPT 58552; principal; 2022-07-09 07:00)
PROC: (CPT 58700; 2022-07-09 07:00)
PROC: 0TJB8ZZ Inspection of Bladder, Via Natural or Artificial Opening Endoscopic (ICD-10-PCS; CPT 52000; 2022-07-09 07:00)
DX: N80.03 Adenomyosis of the uterus (principal); N92.0 Excessive and frequent menstruation with regular cycle; D25.9 Leiomyoma of uterus, unspecified; D28.2 Benign neoplasm of uterine tubes and ligaments; I10 Essential (primary) hypertension; E66.01 Morbid (severe) obesity due to excess calories; Z68.32 Body mass index [BMI] 32.0-32.9, adult
CPT/HCPCS: 58552; 36415; 80048; 81025; 84703; 85025; 85027; 86850; 86900; 87086; 88307; G0378; J0131; J0330; J0690; J1100; J1170; J1885; J2250; J2405; J2704; J2710; J3010; J3490; J7030; J7121

== ENCOUNTER 2023-02-28 09:07 | Outpatient (CLI) | payer OTHER, SELFPAY ==
--- NOTE | 2023-02-28 09:17 | MM_ITS ---
WS: [id number] BILATERAL 3D TOMOSYNTHESIS DIGITAL SCREENING MAMMOGRAPHY WITH CAD CLINICAL INFORMATION: SCREENING HISTORY: Screening mammogram. No current complaints. COMPARISON: 2021 TECHNIQUE: Bilateral CC and MLO views. FINDINGS: Scattered fibroglandular densities bilaterally. No suspicious focal mass, asymmetry, calcifications, or architectural distortion. No evidence of malignancy. IMPRESSION: MM/[place] [id number] BI-RADS: 1-Negative FOLLOW UP: 1 Year Follow-up Recommend return to annual screening mammography.
== END 2023-02-28 09:08 | disposition home or self-care (01) ==
LOC: RAD 09:08
PROVIDERS: PCP Registered Nurse; Visit Provider Nurse Practitioner Women's Health
DX: Z12.31 Encounter for screening mammogram for malignant neoplasm of breast (principal)
CPT/HCPCS: 77063; 77067

== ENCOUNTER 2024-03-12 12:42 | Outpatient (CLI) | payer OTHER, SELFPAY ==
--- NOTE | 2024-03-12 12:45 | MM_ITS ---
WS: [id number] BILATERAL 3D TOMOSYNTHESIS DIGITAL SCREENING MAMMOGRAPHY WITH CAD CLINICAL INFORMATION: SCREENING HISTORY: Screening mammogram. No current complaints. COMPARISON: 2023 TECHNIQUE: Bilateral CC and MLO views. FINDINGS: Scattered fibroglandular densities bilaterally. No suspicious focal mass, asymmetry, calcifications, or architectural distortion. No evidence of malignancy. MM/MM scr BI tomosynthesis [id number] IMPRESSION: DENSITY: There are scattered areas of fibroglandular density. BI-RADS: 2 - Benign. FOLLOW UP: 1 Year Follow-up Recommend return to annual screening mammography.
== END 2024-03-12 12:43 | disposition home or self-care (01) ==
LOC: RAD 12:44
PROVIDERS: PCP Registered Nurse; Visit Provider Registered Nurse
DX: Z12.31 Encounter for screening mammogram for malignant neoplasm of breast (principal); R92.323 Mammographic fibroglandular density, bilateral breasts
CPT/HCPCS: 77063; 77067

== ENCOUNTER → 2024-08-26 13:49 | Outpatient (BNVA) | payer OTHER, SELFPAY | PROVIDERS: PCP Registered Nurse; Visit Provider Nurse Practitioner Women's Health | DX: I10 Essential (primary) hypertension (principal); Z13.21 Encounter for screening for nutritional disorder; Z13.0 Encounter for screening for diseases of the blood and blood-forming organs and certain disorders involving the immune mechanism; Z13.228 Encounter for screening for other metabolic disorders; Z13.1 Encounter for screening for diabetes mellitus | CPT/HCPCS: 80053; 82306; 83036; 85025 ==

== ENCOUNTER → 2024-09-29 11:15 | Outpatient (BNVA) | payer OTHER, SELFPAY | PROVIDERS: PCP Registered Nurse; Visit Provider Nurse Practitioner Women's Health | DX: R61 Generalized hyperhidrosis (principal); R53.83 Other fatigue | CPT/HCPCS: 82728; 83540; 84439; 84443 ==

== ENCOUNTER → 2025-01-11 12:46 | Outpatient (BNVA) | payer OTHER, SELFPAY | PROVIDERS: PCP Registered Nurse; Visit Provider Nurse Practitioner Women's Health | DX: R61 Generalized hyperhidrosis (principal); R68.82 Decreased libido; N92.6 Irregular menstruation, unspecified | CPT/HCPCS: 82670; 84270; 84402; 84403 ==